=== PATIENT | male | born 1965 | race Caucasian/White ===

== ENCOUNTER 2024-09-04 16:52 | Emergency (ER) | payer MEDICARE, SELFPAY ==
[2024-09-04] VITALS (34 sets, daily range): BP systolic 122–178; BP diastolic 75–99; PULSE 54–114; TEMP 36.6; O2SAT 96–100; BMI 23.1
--- NOTE | 2024-09-04 17:09 | ECG_ITS ---
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
--- NOTE | 2024-09-04 17:09 | XR_ITS ---
[address] [address] Patient Name: CATIE KESSLER MRN: [id number] date: 1965 Sex: M Assigned Patient Location: ER Current Patient Location: ED.MAIN Accession/Order Number: [id number] Exam Date: 09/04/2024 17:50 Report Date: 09/04/2024 19:05 At the request of: MISTY CELIS Procedure: XR chest 1V EXAMINATION: XR chest 1V, , 09/04/2024 5:50 PM EDT INDICATION: chest pain HISTORY: Ordering Provider Reason for Exam: chest pain Technologist Note: Additional: COMPARISON: None. TECHNIQUE: Chest x-ray: One view. FINDINGS: No pneumothorax, pleural effusion or focal airspace consolidation. Heart is normal in size. Patient is post bilateral shoulder arthroplasty. XR/XR chest 1V IMPRESSION: No acute cardiopulmonary process. Electronically authenticated by: RIAZ ALCANTARA Date: 09/04/2024 19:05
[2024-09-04 17:21] LABS: Basophils Percent Auto 0.4 % (0.2-2.0); Eosinophils Absolute Auto 0.1 10^3/uL (0.0-0.7); Eosinophils Percent Auto 0.6 % (0.9-7.0); Hematocrit 46.4 % (42.0-54.0); Hemoglobin 15.3 g/dL (14.0-18.0); Immature Granulocytes Abs Auto 0.02 10^3/uL (0.00-0.03); Immature Granulocytes Pct Auto 0.3 % (0.0-0.5); Lymphocytes Absolute Auto 1.6 10^3/uL (1.2-3.8); Lymphocytes Percent Auto 20.5 % (20.5-60.0); Mean Corpuscular Hemoglobin 29.4 pg (25.9-34.0); Mean Corpuscular Volume 89.1 fL (80.0-94.0); Mean Platelet Volume 9.9 fL (9.5-13.5); Monocytes Absolute Auto 0.7 10^3/uL (0.3-0.8); Monocytes Percent Auto 8.5 % (1.7-12.0); Neutrophils Absolute Auto 5.5 10^3/uL (1.4-6.5); Neutrophils Percent Auto 69.7 % (43.0-75.0); Platelet Count 228 10^3/uL (150-450); Red Blood Count 5.21 10^6/uL (4.70-6.10); Red Cell Distribution Width 13.7 % (11.0-15.0); White Blood Count 7.8 10^3/uL (4.0-11.0)
[2024-09-04 17:45] LABS: Alanine Aminotransferase 26 U/L (16-63); Albumin Globulin Ratio 1.1; Albumin Level 4.4 g/dL (3.4-5.0); Alkaline Phosphatase 96 U/L (46-116); Anion Gap 15.5; Aspartate Amino Transferase 23 U/L (15-37); Bilirubin Total 0.5 mg/dL (0.2-1.0); Calcium 9.8 mg/dL (8.5-10.1); Carbon Dioxide 25.1 mmol/L (21.0-32.0); Chloride 102 mmol/L (98-107); Estimated GFR (African America >60 (>=60 mL/min/1.73m^2); Estimated GFR (Non-African Ame >60 (>=60 mL/min/1.73m^2); Globulin 3.9 g/dL; Glucose 120 mg/dL (74-106); Potassium 3.6 mmol/L (3.5-5.1); Sodium 139 mmol/L (136-145); Total Protein 8.3 g/dL (6.4-8.2); Troponin I High Sensitivity 4.5 pg/mL (4.0-76.1)
--- NOTE | 2024-09-04 17:46 | ED_ITS ---
HPI - Chest Pain General Chief Complaint: Chest Pain Stated Complaint: CHEST PAIN Time Seen by Provider: 09/04/24 17:08 Source: patient and family Mode of arrival: walk-in Limitations: no limitations History of Present Illness HPI narrative: The patient is a 58 years old male is coming to the ER with a chest pain that has been going on at least for a week, the pain comes and goes with no specific relation to movement or taking a deep breath. The pain when it comes it comes for few seconds associated with no nausea vomiting or any difficulty breathing Patient mentioned that sometimes the pain woke him up from sleep and sometimes it make him walk around to feel better When asked about any radiation he mentioned some time he feels his neck funny although he did not mention any numbness or tingling in his upper and lower extremity or his neck Related Data Home Medications ?Medication ?Instructions ?Recorded ?Confirmed atorvastatin 20 mg tablet 20 mg PO DAILY 09/04/24 09/04/24 lisinopril 10 1 tab PO DAILY 09/04/24 09/04/24 mg-hydrochlorothiazide 12.5 mg tablet metoprolol tartrate 25 mg tablet 25 mg PO DAILY 09/04/24 09/04/24 upadacitinib 15 mg tablet,extended 15 mg PO DAILY 09/04/24 09/04/24 release 24 hr (Rinvoq) Allergies Allergy/AdvReac Type Severity Reaction Status Date / Time remicaid AdvReac Intermediate Dizziness Uncoded 09/04/24 17:01 Review of Systems ROS Status of ROS 10 or more systems reviewed and unremark able except as noted in history and below Exam Narrative Exam Narrative: Nurses notes and vital signs reviewed and patient is not hypoxic. General: Well-appearing and in no apparent distress. Skin: Warm, dry, no pallor noted. No rash. Head: Normocephalic, atraumatic. Neck: Supple, non-tender. Eye: Pupils are equal, round and EOMI. No scleral icterus. Ears, Nose, Mouth, and Throat: TM are clear, no nasal mucosal hypertrophy. Oral mucosa is moist, no posterior oropharynx erythema, uvula is mid-line Cardiovascular: Regular Rate and Rhythm without murmur, gallop or rub. Respiratory: No accessory muscle use or respiratory distress. Lungs are clear to auscultation, no wheezing, rales or rhonchi Chest Wall: no tenderness Back: No midline thoracic or lumbar vertebral tenderness. No CVA tenderness Musculoskeletal: normal ROM, no calf or popliteal tenderness, no lower extremity edema/swelling GI: Abdomen is soft, non-distended. Normal bowel sounds. No masses appreciated. No tenderness to palpation. No rebound, guarding, or rigidity noted. Neurological: A&O x4. No cranial nerve dysfunction observed. No truncal ataxia. Moves all extremities. Sensation intact. Psychiatric: Cooperative and interactive. Normal mood and affect. Constitutional Vital Signs, click to edit/add: Last Vital Signs Temp 98 F 09/04/24 16:56 Pulse 100 H 09/04/24 16:56 Resp 18 09/04/24 16:56 BP 178/99 H 09/04/24 16:56 Pulse Ox 100 09/04/24 16:56 O2 Del Method Room Air 09/04/24 16:56 Course Vital Signs Vital signs: Vital Signs Temperature 98 F 09/04/24 16:56 Pulse Rate 100 H 09/04/24 16:56 Respiratory Rate 18 09/04/24 16:56 Blood Pressure 178/99 H 09/04/24 16:56 Pulse Oximetry 100 09/04/24 16:56 Oxygen Delivery Method Room Air 09/04/24 16:56 Temperature 98 F 09/04/24 16:56 Pulse Rate 100 H 09/04/24 16:56 Respiratory Rate 18 09/04/24 16:56 Blood Pressure 178/99 H 09/04/24 16:56 Pulse Oximetry 100 09/04/24 16:56 Oxygen Delivery Method Room Air 09/04/24 16:56 MDM - Chest Pain MDM Narrative Medical decision making narrative: The patient EKG in the ER showing sinus rhythm with a heart rate of [address] elevation or depression concerning for acute coronary syndrome The patient CBC and chemistry showed no acute pathology with a troponin on first set is negative The patient provided with Toradol and Pepcid due to the fact that he has been having pain for a week but his blood pressure was found to be elevated at 178/99 CT angio of the chest ordered due to the patient elevated blood pressure and nonspecific pain The patient care will be transferred to Dr. Aguilar awaiting the results of the CT angio of the chest and the second troponin Lab Data Labs: Lab Results 09/04/24 Range/Units 17:10 WBC 7.8 (4.0-11.0) 10^3/uL RBC 5.21 (4.70-6.10) 10^6/uL Hgb 15.3 (14.0-18.0) g/dL Hct 46.4 (42.0-54.0) % MCV 89.1 (80.0-94.0) fL MCH 29.4 (25.9-34.0) pg MCHC 33.0 (29.9-35.2) g/dL RDW 13.7 (11.0-15.0) % Plt Count 228 (150-450) 10^3/uL MPV 9.9 (9.5-13.5) fL Neut % (Auto) 69.7 (43.0-75.0) % Lymph % (Auto) 20.5 (20.5-60.0) % [place] % (Auto) 8.5 (1.7-12.0) % Eos % (Auto) 0.6 L (0.9-7.0) % Baso % (Auto) 0.4 (0.2-2.0) % Neut # (Auto) 5.5 (1.4-6.5) 10^3/uL Lymph # (Auto) 1.6 (1.2-3.8) 10^3/uL [place] # (Auto) 0.7 (0.3-0.8) 10^3/uL Eos # (Auto) 0.1 (0.0-0.7) 10^3/uL Baso # (Auto) 0.0 (0.0-0.1) 10^3/uL Abs Immat Gran (auto) 0.02 (0.00-0.03) 10^3/uL Imm/Tot Granulo (auto) 0.3 (0.0-0.5) % Sodium 139 (136-145) mmol/L Potassium 3.6 (3.5-5.1) mmol/L Chloride 102 (98-107) mmol/L Carbon Dioxide 25.1 (21.0-32.0) mmol/L Anion Gap 15.5 BUN 16.0 (7.0-18.0) mg/dL Creatinine 0.84 (0.70-1.30) mg/dL Est GFR ( Amer) >60 (>=60 mL/min/1.73m^2) Est GFR (Non-Af Amer) >60 (>=60 mL/min/1.73m^2) BUN/Creatinine Ratio 19.0 Glucose 120 H (74-106) mg/dL Calcium 9.8 (8.5-10.1) mg/dL Total Bilirubin 0.5 (0.2-1.0) mg/dL AST 23 (15-37) U/L ALT 26 (16-63) U/L Alkaline Phosphatase 96 (46-116) U/L Troponin I High Sens 4.5 (4.0-76.1) pg/mL Total Protein 8.3 H (6.4-8.2) g/dL Albumin 4.4 (3.4-5.0) g/dL Globulin 3.9 g/dL Albumin/Globulin Ratio 1.1 Discharge Plan Discharge Patient Disposition: Still a Patient
--- NOTE | 2024-09-04 17:48 | ECG_ITS ---
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
--- NOTE | 2024-09-04 17:51 | CT_ITS ---
The [address] [address] Patient Name: CATIE KESSLER MRN: [id number] date: 1965 Sex: M Assigned Patient Location: ER Current Patient Location: ED.MAIN Accession/Order Number: [id number] Exam Date: 09/04/2024 18:18 Report Date: 09/04/2024 21:00 At the request of: MISTY CELIS Procedure: CT angio chest EXAM: CT angio chest HISTORY: chest pain radiating to the back COMPARISON: Chest x-ray of 09/04/2024. TECHNIQUE: Multiple axial images of the chest are obtained following rapid IV contrast administration. FINDINGS: This examination is limited due to streak artifact from bilateral shoulder arthroplasty. There is adequate contrast opacification of the pulmonary arteries. No abrupt cut off or significant filling defect is seen within the pulmonary arteries to suggest CT evidence for pulmonary embolism. The pulmonary arteries are normal in caliber. The thoracic aorta is normal in course and caliber. There is no evidence for thoracic aortic aneurysm or dissection. The heart size is upper limits of normal. There is no evidence for pericardial effusion. Mild coronary arterial calcification is seen. There is no evidence for pleural effusion or pneumothorax. No significant enlarged hilar, mediastinal or axillary adenopathy seen. The lungs appear clear. No focal consolidation is seen The visualized chest wall appears unremarkable. No acute abnormality seen in the visualized upper abdomen. No destructive osseous lesion is seen. CT/CT angio chest IMPRESSION: No CT evidence for pulmonary embolism or other acute pulmonary process. Electronically authenticated by: RIAZ ALCANTARA Date: 09/04/2024 21:00
[2024-09-04] MEDS: KETOROLAC TROMETHAMINE 30 MG/ML VIAL 15 MG IVP (18:02)
[2024-09-04] MEDS: FAMOTIDINE/PF 20 MG/2 ML VIAL IV (18:03)
[2024-09-04 19:02] LABS: Troponin I High Sensitivity 5.4 pg/mL (4.0-76.1)
--- NOTE | 2024-09-04 21:11 | ED.CHESTPAI1 ---
HPI - Chest Pain General Chief Complaint: Chest Pain Stated Complaint: CHEST PAIN Time Seen by Provider: 09/04/24 17:08 Source: patient and family Mode of arrival: walk-in Limitations: no limitations History of Present Illness HPI narrative: 58-year-old male presented to the emergency department and was initially seen by Dr. Fuentes and signed out to me after discussing the case with her thoroughly. Please see her full history and physical exam. Related Data Home Medications ?Medication ?Instructions ?Recorded ?Confirmed atorvastatin 20 mg tablet 20 mg PO DAILY 09/04/24 09/04/24 lisinopril 10 1 tab PO DAILY 09/04/24 09/04/24 mg-hydrochlorothiazide 12.5 mg tablet metoprolol tartrate 25 mg tablet 25 mg PO DAILY 09/04/24 09/04/24 upadacitinib 15 mg tablet,extended 15 mg PO DAILY 09/04/24 09/04/24 release 24 hr (Rinvoq) Allergies Allergy/AdvReac Type Severity Reaction Status Date / Time remicaid AdvReac Intermediate Dizziness Uncoded 09/04/24 17:01 Exam Constitutional Vital Signs, click to edit/add: Last Vital Signs Temp 98 F 09/04/24 16:56 Pulse 56 L 09/04/24 21:00 Resp 17 09/04/24 21:00 BP 127/83 09/04/24 21:00 Pulse Ox 100 09/04/24 20:10 O2 Del Method Room Air 09/04/24 16:56 Course Vital Signs Vital signs: Vital Signs Temperature 98 F 09/04/24 16:56 Pulse Rate 100 H 09/04/24 16:56 Respiratory Rate 18 09/04/24 16:56 Blood Pressure 178/99 H 09/04/24 16:56 Pulse Oximetry 100 09/04/24 16:56 Oxygen Delivery Method Room Air 09/04/24 16:56 Temperature 98 F 09/04/24 16:56 Pulse Rate 56 L 09/04/24 21:00 Respiratory Rate 17 09/04/24 21:00 Blood Pressure 127/83 09/04/24 21:00 Pulse Oximetry 100 09/04/24 20:10 Oxygen Delivery Method Room Air 09/04/24 16:56 MDM - Chest Pain MDM Narrative Medical decision making narrative: Workup is negative including 2 sets of troponin and CTA. He was recommended ibuprofen and is discharged home and will follow-up with his PCP, calling tomorrow for follow-up appointment. Treatment diagnosis and follow-up were discussed with the patient. Differential Diagnosis Differential diagnosis: Likely fracture of rib, pneumothorax, stable angina, atypical chest pain, st elevation myocardial infarction, chest pain and other (Pulmonary embolism) Lab Data Attestation: I reviewed the patient's lab results. Labs: Lab Results 09/04/24 09/04/24 Range/Units 17:10 18:40 WBC 7.8 (4.0-11.0) 10^3/uL RBC 5.21 (4.70-6.10) 10^6/uL Hgb 15.3 (14.0-18.0) g/dL Hct 46.4 (42.0-54.0) % MCV 89.1 (80.0-94.0) fL MCH 29.4 (25.9-34.0) pg MCHC 33.0 (29.9-35.2) g/dL RDW 13.7 (11.0-15.0) % Plt Count 228 (150-450) 10^3/uL MPV 9.9 (9.5-13.5) fL Neut % (Auto) 69.7 (43.0-75.0) % Lymph % (Auto) 20.5 (20.5-60.0) % [place] % (Auto) 8.5 (1.7-12.0) % Eos % (Auto) 0.6 L (0.9-7.0) % Baso % (Auto) 0.4 (0.2-2.0) % Neut # (Auto) 5.5 (1.4-6.5) 10^3/uL Lymph # (Auto) 1.6 (1.2-3.8) 10^3/uL [place] # (Auto) 0.7 (0.3-0.8) 10^3/uL Eos # (Auto) 0.1 (0.0-0.7) 10^3/uL Baso # (Auto) 0.0 (0.0-0.1) 10^3/uL Abs Immat Gran (auto) 0.02 (0.00-0.03) 10^3/uL Imm/Tot Granulo (auto) 0.3 (0.0-0.5) % Sodium 139 (136-145) mmol/L Potassium 3.6 (3.5-5.1) mmol/L Chloride 102 (98-107) mmol/L Carbon Dioxide 25.1 (21.0-32.0) mmol/L Anion Gap 15.5 BUN 16.0 (7.0-18.0) mg/dL Creatinine 0.84 (0.70-1.30) mg/dL Est GFR ( Amer) >60 (>=60 mL/min/1.73m^2) Est GFR (Non-Af Amer) >60 (>=60 mL/min/1.73m^2) BUN/Creatinine Ratio 19.0 Glucose 120 H (74-106) mg/dL Calcium 9.8 (8.5-10.1) mg/dL Total Bilirubin 0.5 (0.2-1.0) mg/dL AST 23 (15-37) U/L ALT 26 (16-63) U/L Alkaline Phosphatase 96 (46-116) U/L Troponin I High Sens 4.5 5.4 (4.0-76.1) pg/mL Total Protein 8.3 H (6.4-8.2) g/dL Albumin 4.4 (3.4-5.0) g/dL Globulin 3.9 g/dL Albumin/Globulin Ratio 1.1 Imaging Data Chest x-ray: Radiologist's impression: ITS Impressions Chest X-Ray 09/04/24 17:09 IMPRESSION: No acute cardiopulmonary process. Electronically authenticated by: RIAZ ALCANTARA Date: 09/04/2024 19:05 Chest CTA 09/04/24 17:51 IMPRESSION: No CT evidence for pulmonary embolism or other acute pulmonary process. Electronically authenticated by: [employer] Date: 09/04/2024 21:00 Heart Score History: Moderately Suspicious ECG: Normal Age: >45-<65 years Risk Factors: 1 or 2 Risk Factors Troponin: <Normal Limit Total Heart Score Recommendations & Risks:: 3 Discharge Plan Discharge Chief Complaint: Chest Pain Clinical Impression: Chest pain Patient Disposition: Home, Self-Care Time of Disposition Decision: 21:10 Condition: Good Mode of Transportation: Private Vehicle Prescriptions / Home Meds: No Action atorvastatin 20 mg tablet 20 mg PO DAILY lisinopril-hydrochlorothiazide 10-12.5 mg tablet 1 tab PO DAILY metoprolol tartrate 25 mg tablet 25 mg PO DAILY Rinvoq 15 mg tablet extended release 24 hr 15 mg PO DAILY Print Language: Icelandic Instructions: Chest Pain (ED) Referrals: Physician,Non-Staff, MD [Primary Care Provider] - 1 week
== END 2024-09-04 21:19 | disposition home or self-care (01) ==
PROVIDERS: Emergency Medicine; Emergency Provider Emergency Medicine; PCP Internal Medicine Cardiovascular Disease
DX: R07.9 Chest pain, unspecified (principal)
CPT/HCPCS: 36415; 71045; 71275; 80053; 84484; 85025; 93005; 99285; J1885; Q9967